=== PATIENT | female | born 1970 | race Two or more races ===

== ENCOUNTER 2024-03-26 16:12 | Inpatient (IN) | payer MEDICARE, MEDICAID ==
[~2024-03-26] VITALS: Ht 160 cm; Wt 56.8 kg
[2024-03-26 17:45] LABS: BASOPHILS % (AUTO) 0.8 % (0.0-2.0); CALCIUM, TOTAL 8.3 mg/dL (8.8-10.5); CREATININE 5.31 mg/dL (0.60-1.30); EOSINOPHILS % (AUTO) 4.2 % (1.0-6.0); HEMATOCRIT 22.3 % (36-46); LYMPHOCYTES # (AUTO) 0.7 K/uL (1.0-4.8); LYMPHOCYTES % (AUTO) 12.4 % (22.0-44.0); MEAN CORPUSCULAR HEMOGLOBIN 25.8 pg (26.0-34.0); MEAN CORPUSCULAR HGB CONC 30.9 G/dL (31.0-37.0); MEAN CORPUSCULAR VOLUME 83 fL (80-100); MONOCYTES # (AUTO) 0.2 K/uL (0.1-1.0); MONOCYTES % (AUTO) 3.9 % (2.0-9.0); NEUTROPHILS # (AUTO) 4.3 K/uL (1.8-7.7); NEUTROPHILS % (AUTO) 78.7 % (40.0-70.0); PLATELET COUNT (AUTO) 278 K/uL (150-450); POTASSIUM 4.7 mmol/L (3.5-5.1); RED BLOOD CELL COUNT(AUTO) 2.68 MIL/uL (4.00-5.20); RED CELL DISTRIBUTION WIDTH 16.5 % (11.5-14.5); WHITE BLOOD COUNT (AUTO) 5.5 K/uL (4.5-11.0)
[2024-03-26 17:46] LABS: INR 0.9 (0.9-1.1)
[2024-03-26 17:50] LABS: ALBUMIN 3.4 g/dL (3.4-5.0); BILIRUBIN,TOTAL 0.2 mg/dL (0.1-1.0); TOTAL PROTEIN, SERUM 6.9 g/dL (6.4-8.2)
[2024-03-26 17:52] LABS: HEMOGLOBIN 6.9 g/dL (12.0-16.0)
[2024-03-26 17:54] LABS: TROPONIN I-HIGH SENSITIVITY 15 ng/L (<51)
[2024-03-26] MEDS ORDERED: HydrALAZINE HCL 20 MG/ML VIAL ONE (21:04)
[2024-03-26] MEDS: HydrALAZINE HCL 20 MG/ML VIAL IVP ONE (21:07)
[2024-03-26] MEDS: DiphenhydrAMINE HCL 50 MG/ML VIAL IVP ONE (21:26)
[2024-03-26] MEDS: DiphenhydrAMINE HCL 50 MG CAPSULE PO ONE (21:37)
[2024-03-26] MEDS ORDERED: ONDANSETRON HCL 4 MG/2 ML VIAL IVP PRN (21:45)
[2024-03-26] MEDS ORDERED: BISACODYL 10 MG RECTAL RECTAL SUPPOSITORY PR PRN (21:45)
[2024-03-26] MEDS ORDERED: IPRATROPIUM BROMIDE 0.5 MG/2.5 ML NEB SOLUTION NEB PRN (21:45)
[2024-03-26] MEDS ORDERED: ALBUTEROL SULFATE 2.5 MG/0.5 ML NEB SOLUTION NEB PRN (21:45)
[2024-03-26] MEDS ORDERED: ZOLPIDEM TARTRATE 5 MG TABLET PO PRN (21:45)
[2024-03-26] MEDS ORDERED: MAGNESIUM HYDROXIDE SUSPENSION 30 ML UDCUP PO PRN (21:45)
[2024-03-26] MEDS ORDERED: ACETAMINOPHEN 325 MG TABLET PO PRN (21:45)
[2024-03-26 22:15] VITALS: BP 174/102; PULSE 83; RESP 24; TEMP 98.5
[2024-03-26 22:32] VITALS: BP 186/106; PULSE 80; RESP 22; TEMP 98.5
[2024-03-26 22:47] VITALS: BP 174/100; PULSE 80; RESP 16; TEMP 98.3
[2024-03-26] MEDS ORDERED: MYCO250C27 PO (22:57)
[2024-03-26] MEDS ORDERED: TACR1CAP12 PO (23:00)
[2024-03-26] MEDS ORDERED: PRED5TAB2 PO (23:00)
[2024-03-26] MEDS ORDERED: LORA-1000 PO (23:01)
[2024-03-26] MEDS ORDERED: LISI-663 PO (23:01)
[2024-03-26 23:02] VITALS: BP 180/102; PULSE 68; RESP 20; TEMP 98.3
[2024-03-26] MEDS ORDERED: ALPR-705 PO (23:02)
[2024-03-26 23:17] VITALS: BP_SYST 176; BP_DIAS 101; BP_DIAS 98; PULSE 80; RESP 18; TEMP 98.5
[2024-03-26 23:35] LABS: APPEARANCE,URINE CLEAR (CLEAR); BILIRUBIN,URINE NEGATIVE (NEGATIVE); COLOR,URINE COLORLESS (YELLOW); GLUCOSE, URINE (UA) NEGATIVE (NEGATIVE); KETONES,URINE NEGATIVE (NEGATIVE); LEUKOCYTE ESTERASE ,URINE NEGATIVE (NEGATIVE); NITRATE,URINE NEGATIVE (NEGATIVE); OCCULT BLOOD,URINE NEGATIVE (NEGATIVE); PH,URINE 6.5 (5.0-8.0); PROTEIN,URINE 100-200,SEE CONFIRM mg/dL (NEGATIVE); SPECIFIC GRAVITIY, URINE 1.006 (1.003-1.030); UROBILINOGEN,URINE <=1.0 mg/dL (<=1.0)
[2024-03-26 23:47] VITALS: BP 175/98; PULSE 78; RESP 16; TEMP 98.3
[2024-03-26 23:52] LABS: BACTERIA,URINE None Seen /HPF (None Seen); RBC,URINE None Seen /HPF (0-2); SQUAMOUS EPITHELIAL CELL,UR Few /LPF (None Seen); SULFOSALICYLIC ACID,URINE 1+ (Negative); WBC,URINE 0-2 /HPF (0-5)
[2024-03-26] MEDS: HEPARIN SODIUM,PORCINE 5,000 UNITS/ML VIAL SQ SCH (23:59)
[2024-03-27] VITALS (15 sets, daily range): BP systolic 138–180; BP diastolic 77–98; PULSE 61–76; RESP 16–20; TEMP 97.9–98.5
[2024-03-27] MEDS: ALPRAZolam 0.25 MG TABLET PO SCH (00:10)
[2024-03-27] MEDS ORDERED: LABETALOL HCL 5 MG/ML 20 ML VIAL IVP PRN (03:00)
[2024-03-27] MEDS: TACROLIMUS 1 MG CAPSULE PO SCH (08:22)
[2024-03-27] MEDS: MYCOPHENOLATE MOFETIL 250 MG CAPSULE PO SCH (08:22)
[2024-03-27] MEDS: HYDROCODONE/ACETAMINOPHEN 5-325 MG TABLET PO PRN (08:22)
[2024-03-27] MEDS: PANTOPRAZOLE SODIUM 40 MG DR TABLET PO SCH (08:22)
[2024-03-27] MEDS: LISINOPRIL 20 MG TABLET PO SCH (08:22)
[2024-03-27] MEDS: PredniSONE 5 MG TABLET PO SCH (08:22)
[2024-03-27 08:35] LABS: BASOPHILS % (AUTO) 0.8 % (0.0-2.0); EOSINOPHILS % (AUTO) 6.2 % (1.0-6.0); HEMOGLOBIN 7.7 g/dL (12.0-16.0); LYMPHOCYTES # (AUTO) 1.2 K/uL (1.0-4.8); LYMPHOCYTES % (AUTO) 28.1 % (22.0-44.0); MEAN CORPUSCULAR HEMOGLOBIN 26.4 pg (26.0-34.0); MEAN CORPUSCULAR HGB CONC 32.1 G/dL (31.0-37.0); MEAN CORPUSCULAR VOLUME 82 fL (80-100); MONOCYTES # (AUTO) 0.4 K/uL (0.1-1.0); MONOCYTES % (AUTO) 8.4 % (2.0-9.0); NEUTROPHILS # (AUTO) 2.5 K/uL (1.8-7.7); NEUTROPHILS % (AUTO) 56.5 % (40.0-70.0); PLATELET COUNT (AUTO) 246 K/uL (150-450); RED BLOOD CELL COUNT(AUTO) 2.92 MIL/uL (4.00-5.20); RED CELL DISTRIBUTION WIDTH 17.5 % (11.5-14.5); WHITE BLOOD COUNT (AUTO) 4.4 K/uL (4.5-11.0)
[2024-03-27 08:45] LABS: CALCIUM, TOTAL 8.6 mg/dL (8.8-10.5); CREATININE 5.19 mg/dL (0.60-1.30)
[2024-03-27] MEDS: MORPHINE SULFATE 2 MG/ML SYRINGE IVP PRN (09:06)
[2024-03-27 13:06] LABS: APPEARANCE,URINE CLEAR (CLEAR); BILIRUBIN,URINE NEGATIVE (NEGATIVE); COLOR,URINE COLORLESS (YELLOW); GLUCOSE, URINE (UA) NEGATIVE (NEGATIVE); KETONES,URINE NEGATIVE (NEGATIVE); LEUKOCYTE ESTERASE ,URINE NEGATIVE (NEGATIVE); NITRATE,URINE NEGATIVE (NEGATIVE); OCCULT BLOOD,URINE TRACE (NEGATIVE); PH,URINE 6.5 (5.0-8.0); PROTEIN,URINE 100-200,SEE CONFIRM mg/dL (NEGATIVE); SPECIFIC GRAVITIY, URINE 1.007 (1.003-1.030); UROBILINOGEN,URINE <=1.0 mg/dL (<=1.0)
[2024-03-27 13:10] LABS: CREATININE,URINE RANDOM 28.9 mg/dL (30.0-125.0); PROTEIN,URINE RANDOM 138 mg/dL (0-11.9); SODIUM,URINE RANDOM 61 mmol/l (20-110); UREA NITROGEN,URINE RANDOM 222 mg/dL (350-1000)
[2024-03-27 13:29] LABS: BACTERIA,URINE None Seen /HPF (None Seen); RBC,URINE 0-2 /HPF (0-2); SQUAMOUS EPITHELIAL CELL,UR Few /LPF (None Seen); WBC,URINE 0-2 /HPF (0-5)
[2024-03-27] MEDS ORDERED: SODIUM CHLORIDE 0.9% 250 ML IV ONE (14:31)
[2024-03-27] MEDS ORDERED: CALC667C PO (15:25)
[2024-03-27] MEDS ORDERED: ESCI20TA37 PO (15:25)
[2024-03-27] MEDS ORDERED: MYCO500T5 PO (15:25)
[2024-03-27] MEDS ORDERED: LORA-999 PO (15:25)
[2024-03-27] MEDS ORDERED: EPOE10003 SQ (15:25)
[2024-03-27] MEDS ORDERED: CINA30TA5 PO (15:25)
[2024-03-27] MEDS: AmLODIPine BESYLATE 10 MG TABLET PO SCH (17:36)
[2024-03-27] MEDS: DiphenhydrAMINE HCL 25 MG CAPSULE PO ONE (18:29)
== END 2024-03-27 23:09 | disposition home or self-care (01) | DRG 698 ==
LOC: EMS 16:12 → EDH 21:42 → 5S 03-27 01:00
PROVIDERS: ADMIT Hospitalist; ATTEND Hospitalist
PROC: 30233N1 Transfusion of Nonautologous Red Blood Cells into Peripheral Vein, Percutaneous Approach (ICD-10-PCS; principal; 2024-03-26)
DX: T86.19 Other complication of kidney transplant (principal); N18.6 End stage renal disease; N17.9 Acute kidney failure, unspecified; E87.20 Acidosis, unspecified; I12.0 Hypertensive chronic kidney disease with stage 5 chronic kidney disease or end stage renal disease; N25.81 Secondary hyperparathyroidism of renal origin; D64.9 Anemia, unspecified; Z90.5 Acquired absence of kidney
CPT/HCPCS: 71045; 76770; 80048; 80053; 81001; 81002; 82570; 83880; 84156; 84300; 84484; 84540; 85025; 85610; 85730; 86850; 86900; 86901; 86923; 93005; 96374; 99285; G0378; J0360; J1200; J1644; J2270; J7050; J7507; J7517; P9016; 36415-L1; 36415-TC

== ENCOUNTER 2024-05-22 14:29 | Inpatient (IN) | payer MEDICARE, MEDICAID ==
[2024-05-22] VITALS (7 sets, daily range): BP systolic 148–181; BP diastolic 85–95; PULSE 52–61; RESP 14–19; TEMP 97.5–98.5; O2SAT 100
[~2024-05-22] VITALS: Ht 165.1 cm; Wt 61.0 kg
[~2024-05-22 14:29] MED LIST: CALC667C PO; CINA30TA5 PO; EPOE10003 SQ; ESCI20TA37 PO; LISI-663 PO; LORA-999 PO; MYCO500T5 PO; PRED5TAB2 PO; TACR1CAP12 PO
[2024-05-22 15:46] LABS: EOSINOPHILS % (AUTO) 2.2 % (1.0-6.0); LYMPHOCYTES % (AUTO) 30.7 % (22.0-44.0); MEAN CORPUSCULAR HEMOGLOBIN 25.7 pg (26.0-34.0); MEAN CORPUSCULAR HGB CONC 32.2 G/dL (31.0-37.0); MEAN CORPUSCULAR VOLUME 80 fL (80-100); MONOCYTES # (AUTO) 0.3 K/uL (0.1-1.0); MONOCYTES % (AUTO) 9.8 % (2.0-9.0); NEUTROPHILS # (AUTO) 1.9 K/uL (1.8-7.7); NEUTROPHILS % (AUTO) 56.3 % (40.0-70.0); PLATELET COUNT (AUTO) 244 K/uL (150-450); RED BLOOD CELL COUNT(AUTO) 2.39 MIL/uL (4.00-5.20); RED CELL DISTRIBUTION WIDTH 16.4 % (11.5-14.5); WHITE BLOOD COUNT (AUTO) 3.4 K/uL (4.5-11.0)
[2024-05-22 16:01] LABS: HEMOGLOBIN 6.1 g/dL (12.0-16.0)
[2024-05-22 16:02] LABS: HEMATOCRIT 19.1 % (36-46)
[2024-05-22 16:05] LABS: CALCIUM, TOTAL 7.7 mg/dL (8.8-10.5); CREATININE 5.17 mg/dL (0.60-1.30); POTASSIUM 4.2 mmol/L (3.5-5.1); TROPONIN I-HIGH SENSITIVITY 14 ng/L (<51)
[2024-05-22] MEDS: DiphenhydrAMINE HCL 50 MG/ML VIAL IVP ONE (19:54)
[2024-05-22] MEDS: CARVEDILOL 6.25 MG TABLET PO ONE (21:15)
[2024-05-22 21:18] LABS: APPEARANCE,URINE CLEAR (CLEAR); BILIRUBIN,URINE NEGATIVE (NEGATIVE); COLOR,URINE COLORLESS (YELLOW); GLUCOSE, URINE (UA) NEGATIVE (NEGATIVE); KETONES,URINE NEGATIVE (NEGATIVE); LEUKOCYTE ESTERASE ,URINE NEGATIVE (NEGATIVE); NITRATE,URINE NEGATIVE (NEGATIVE); OCCULT BLOOD,URINE NEGATIVE (NEGATIVE); PH,URINE 6.5 (5.0-8.0); PROTEIN,URINE 100-200,SEE CONFIRM mg/dL (NEGATIVE); SPECIFIC GRAVITIY, URINE 1.006 (1.003-1.030); UROBILINOGEN,URINE <=1.0 mg/dL (<=1.0)
[2024-05-22 21:19] LABS: BACTERIA,URINE None Seen /HPF (None Seen); RBC,URINE None Seen /HPF (0-2); SULFOSALICYLIC ACID,URINE 1+ (Negative); WBC,URINE None Seen /HPF (0-5)
[2024-05-22] MEDS ORDERED: MAGNESIUM HYDROXIDE SUSPENSION 30 ML UDCUP PO PRN (22:00)
[2024-05-22] MEDS ORDERED: BISACODYL 10 MG RECTAL RECTAL SUPPOSITORY PR PRN (22:00)
[2024-05-22] MEDS ORDERED: ONDANSETRON HCL 4 MG/2 ML VIAL IVP PRN (22:00)
[2024-05-22] MEDS ORDERED: IPRATROPIUM BROMIDE 0.5 MG/2.5 ML NEB SOLUTION NEB PRN (22:00)
[2024-05-22] MEDS ORDERED: MORPHINE SULFATE 2 MG/ML SYRINGE IVP PRN (22:00)
[2024-05-22] MEDS ORDERED: HYDROCODONE/ACETAMINOPHEN 5-325 MG TABLET PO PRN (22:00)
[2024-05-22] MEDS ORDERED: ALBUTEROL SULFATE 2.5 MG/0.5 ML NEB SOLUTION NEB PRN (22:00)
[2024-05-22] MEDS ORDERED: ZOLPIDEM TARTRATE 5 MG TABLET PO PRN (22:00)
[2024-05-22] MEDS ORDERED: ACETAMINOPHEN 325 MG TABLET PO PRN (22:00)
[2024-05-23] VITALS (11 sets, daily range): BP systolic 149–176; BP diastolic 83–99; PULSE 51–60; RESP 17–19; TEMP 97.5–98.9; O2SAT 98–100
[2024-05-23] MEDS: HEPARIN SODIUM,PORCINE 5,000 UNITS/ML VIAL SQ SCH
[2024-05-23] MEDS ORDERED: SODIUM CHLORIDE 0.9% 500 ML IV ONE (00:12)
[2024-05-23 06:30] LABS: BASOPHILS % (AUTO) 0.7 % (0.0-2.0); EOSINOPHILS % (AUTO) 3.7 % (1.0-6.0); HEMOGLOBIN 7.6 g/dL (12.0-16.0); LYMPHOCYTES # (AUTO) 1.5 K/uL (1.0-4.8); LYMPHOCYTES % (AUTO) 40.1 % (22.0-44.0); MEAN CORPUSCULAR HEMOGLOBIN 27.1 pg (26.0-34.0); MEAN CORPUSCULAR HGB CONC 32.9 G/dL (31.0-37.0); MEAN CORPUSCULAR VOLUME 82 fL (80-100); MONOCYTES # (AUTO) 0.4 K/uL (0.1-1.0); MONOCYTES % (AUTO) 9.9 % (2.0-9.0); NEUTROPHILS # (AUTO) 1.7 K/uL (1.8-7.7); NEUTROPHILS % (AUTO) 45.6 % (40.0-70.0); PLATELET COUNT (AUTO) 203 K/uL (150-450); RED BLOOD CELL COUNT(AUTO) 2.79 MIL/uL (4.00-5.20); RED CELL DISTRIBUTION WIDTH 16.2 % (11.5-14.5); WHITE BLOOD COUNT (AUTO) 3.8 K/uL (4.5-11.0)
[2024-05-23 06:50] LABS: CALCIUM, TOTAL 7.5 mg/dL (8.8-10.5); CREATININE 5.24 mg/dL (0.60-1.30); POTASSIUM 4.4 mmol/L (3.5-5.1)
[2024-05-23] MEDS: LORazepam 0.5 MG TABLET PO SCH (09:00)
[2024-05-23] MEDS: PredniSONE 5 MG TABLET PO SCH (09:50)
[2024-05-23] MEDS: CALCIUM ACETATE 667 MG CAPSULE PO SCH (09:51)
[2024-05-23] MEDS: CINACALCET HCL 30 MG TABLET PO SCH (09:51)
[2024-05-23] MEDS: ESCITALOPRAM OXALATE 20 MG TABLET PO SCH (09:52)
[2024-05-23] MEDS: MYCOPHENOLATE MOFETIL 250 MG CAPSULE PO SCH (09:52)
[2024-05-23] MEDS: TACROLIMUS 1 MG CAPSULE PO SCH (09:52)
[2024-05-23] MEDS: PANTOPRAZOLE SODIUM 40 MG DR TABLET PO SCH (09:53)
[2024-05-23] MEDS: LISINOPRIL 20 MG TABLET PO ONE (12:03)
[2024-05-23] MEDS: CARVEDILOL 6.25 MG TABLET PO ONE (12:03)
[2024-05-23] MEDS ORDERED: CARVEDILOL 6.25 MG TABLET PO SCH (21:00)
[2024-05-24] MEDS ORDERED: LISINOPRIL 20 MG TABLET PO SCH (09:00)
[2024-06-05] MEDS ORDERED: EPOETIN ALFA 10,000 UNITS/ML VIAL SQ SCH (09:00)
== END 2024-05-23 13:25 | disposition home or self-care (01) | DRG 683 ==
LOC: EMS 14:31 → EDH 22:08 → 5S 22:45
PROVIDERS: ADMIT Hospitalist; ATTEND Hospitalist
PROC: 30233N1 Transfusion of Nonautologous Red Blood Cells into Peripheral Vein, Percutaneous Approach (ICD-10-PCS; principal; 2024-05-22)
DX: I12.0 Hypertensive chronic kidney disease with stage 5 chronic kidney disease or end stage renal disease (principal); N18.5 Chronic kidney disease, stage 5; T86.12 Kidney transplant failure; Z94.0 Kidney transplant status; D63.1 Anemia in chronic kidney disease; Y83.8 Other surgical procedures as the cause of abnormal reaction of the patient, or of later complication, without mention of misadventure at the time of the procedure; Z79.899 Other long term (current) drug therapy; Y92.89 Other specified places as the place of occurrence of the external cause
CPT/HCPCS: 80048; 81001; 81002; 84484; 85025; 86850; 86900; 86901; 86923; 99285; J1200; J1644; J7040; J7507; J7517; P9016